=== PATIENT | female | born 1990 | race Two or more races ===

== ENCOUNTER 2019-03-09 18:38 | Emergency (ER) | payer OTHER ==
[~2019-03-09] VITALS: Ht 152.4 cm; Wt 62.6 kg
[2019-03-09 19:55] LABS: BASO % 1 % (0-3); EOS # 0.1 x10^3/uL (0.0-0.7); EOS % 2 % (0-3); HEMATOCRIT 37.1 % (36.0-47.0); HEMOGLOBIN 12.6 g/dL (12.0-15.5); LYMPH # 2.3 x10^3/uL (1.0-4.8); LYMPH % 28 % (24-48); MEAN CORPUSCULAR HEMOGLOBIN 32 pg (25-35); MEAN CORPUSCULAR HGB CONC 34 g/dL (31-37); MEAN CORPUSCULAR VOLUME 94 fL (79-100); MONO # 0.6 x10^3/uL (0.0-1.1); MONO % 8 % (0-9); NEUT # 5.1 x10^3/uL (1.8-7.7); NEUT % 62 % (31-73); PLATELET COUNT 298 x10^3/uL (140-400); RED BLOOD COUNT 3.96 x10^6/uL (3.50-5.40); RED CELL DISTRIBUTION WIDTH 12.8 % (11.5-14.5); WHITE BLOOD COUNT 8.2 x10^3/uL (4.0-11.0)
[2019-03-09 19:58] LABS: BILIRUBIN,URINE NEGATIVE (NEG); CLARITY,URINE CLEAR; COLOR,URINE YELLOW; NITRITE,URINE NEGATIVE (NEG); PH,URINE 5.5; PROTEIN,URINE NEGATIVE (NEG-TRACE)
[2019-03-09 20:02] LABS: BACTERIA,URINE MODERATE /HPF (0-FEW); RBC,URINE OCC /HPF (0-2); SQUAMOUS EPITHELIAL CELL,UR FEW /LPF; WBC,URINE OCC /HPF (0-4)
--- NOTE | 2019-03-09 20:07 | PHYS DOC ---
Past Medical History Past Medical History: No Pertinent History (MAGALIS BANKS APRN) Past Surgical History: No Surgical History (MAGALIS BANKS APRN) Alcohol Use: None Drug Use: None (MAGALIS BANKS APRN) Attending Signature I have participated in the care of this patient and I have reviewed and agree with all pertinent clinical information above including history, exam, and recommendations. (WICHO MCCARTHY MD) Adult General Chief Complaint Chief Complaint: VAGINAL BLEEDING HPI HPI Patient is a 28 year old [female] who presents with lower abdominal cramping, spotting. Patient reports she is approximately 9 weeks , and last follo w-up with her [employer] in 6 weeks. Patient . Reports over the last 1-2 weeks, she is continued has some lower abdominal discomfort. Reports last time she was at her [employer] she is found to have some blood pooling in her uterus, and was told she is high risk. States she has not followed up with her [employer] since that time. States no major vaginal bleeding, no clotting, just some light spotting over the last few days. ] (MAGALIS BANKS APRN) Review of Systems Review of Systems Constitutional: Denies fever or chills [] Respiratory: Denies cough or shortness of breath [] Cardiovascular: No additional information not addressed in HPI [] GI: Denies abdominal pain, nausea, vomiting, bloody stools or diarrhea [] : Denies dysuria or hematuria, Does report lower abdominal cramping L worse than R, with some spotting over the past 2-3 weeks. [] Musculoskeletal: Denies back pain or joint pain [] Integument: Denies rash or skin lesions [] Neurologic: Denies headache, focal weakness or sensory changes [] Endocrine: Denies polyuria or polydipsia [] All other systems were reviewed and found to be within normal limits, except as documented in this note. (MAGALIS BANSK APRN) Allergies Allergies Allergies Coded Allergies Type Severity Reaction Last Updated Verified No Known Drug Allergies 03/09/19 No (WICHO MCCARTHY MD) Physical Exam Physical Exam Constitutional: Well developed, well nourished, no acute distress, non-toxic appearance. [] Eyes: PERRLA, EOMI, conjunctiva normal, no discharge. [] Cardiovascular:Heart rate regular rhythm, no murmur [] Lungs & Thorax: Bilateral breath sounds clear to auscultation [] Abdomen: Bowel sounds normal, soft, no tenderness, no masses, no pulsatile masses. [] Skin: Warm, dry, no erythema, no rash. [] Back: No tenderness, no CVA tenderness. [] Extremities: No tenderness, no cyanosis, no clubbing, ROM intact, no edema. [] Neurologic: Alert and oriented X 3, normal motor function, normal sensory function, no focal deficits noted. [] Psychologic: Affect normal, judgement normal, mood normal. [] (MAGALIS BANKS APRN) Current Patient Data Vital Signs Vital Signs Date Time Temp Pulse Resp B/P (MAP) Pulse Ox O2 Delivery O2 Flow Rate FiO2 03/09/19 20:32 78 17 103/63 (76) 98 Room Air 03/09/19 18:43 98.7 98.7 (WICHO MCCARTHY MD) Lab Values Laboratory Tests Test 03/09/19 19:04 03/09/19 19:06 03/09/19 19:25 Urine Collection Type Unknown Urine Color Yellow Urine Clarity Clear Urine pH 5.5 Urine Specific [place] 1.025 Urine Protein Negative mg/dL (NEG-TRACE) Urine Glucose (UA) Negative mg/dL (NEG) Urine Ketones (Stick) Negative mg/dL (NEG) Urine Blood Large (NEG) Urine Nitrite Negative (NEG) Urine Bilirubin Negative (NEG) Urine Urobilinogen Dipstick 1.0 mg/dL (0.2 mg/dL) Urine Leukocyte Esterase Small (NEG) Urine RBC Occ /HPF (0-2) Urine WBC Occ /HPF (0-4) Urine Squamous Epithelial Cells Few /LPF Urine Bacteria Moderate /HPF (0-FEW) Urine Mucus Mod /LPF POC Urine HCG, Qualitative Hcg positive (Negative) White Blood Count 8.2 x10^3/uL (4.0-11.0) Red Blood Count 3.96 x10^6/uL (3.50-5.40) Hemoglobin 12.6 g/dL (12.0-15.5) Hematocrit 37.1 % (36.0-47.0) Mean Corpuscular Volume 94 fL (79-100) Mean Corpuscular Hemoglobin 32 pg (25-35) Mean Corpuscular Hemoglobin Concent 34 g/dL (31-37) Red Cell Distribution Width 12.8 % (11.5-14.5) Platelet Count 298 x10^3/uL (140-400) Neutrophils (%) (Auto) 62 % (31-73) Lymphocytes (%) (Auto) 28 % (24-48) Monocytes (%) (Auto) 8 % (0-9) Eosinophils (%) (Auto) 2 % (0-3) Basophils (%) (Auto) 1 % (0-3) Neutrophils # (Auto) 5.1 x10^3/uL (1.8-7.7) Lymphocytes # (Auto) 2.3 x10^3/uL (1.0-4.8) Monocytes # (Auto) 0.6 x10^3/uL (0.0-1.1) Eosinophils # (Auto) 0.1 x10^3/uL (0.0-0.7) Basophils # (Auto) 0.0 x10^3/uL (0.0-0.2) Maternal Serum HCG Beta Subunit 99124 mIU/mL (0-5) H Sodium Level 140 mmol/L (136-145) Potassium Level 3.9 mmol/L (3.5-5.1) Chloride Level 105 mmol/L (98-107) Carbon Dioxide Level 26 mmol/L (21-32) Anion Gap 9 (6-14) Blood Urea Nitrogen 11 mg/dL (7-20) Creatinine 0.7 mg/dL (0.6-1.0) Estimated GFR (Cockcroft-Gault) 98.9 Glucose Level 85 mg/dL (70-99) Calcium Level 8.9 mg/dL (8.5-10.1) Laboratory Tests 03/09/19 19:25 Laboratory Tests 03/09/19 19:25 (WICHO MCCARTHY MD) EKG EKG [] (MAGALIS BANKS APRN) Radiology/Procedures Radiology/Procedures FINDINGS: Uterus measures 7.3 x 6.0 x 5.2 cm. Within the endometrium there is a gestational sac with yolk sac and pole. pole measures 17 mm in crown-rump length. No heart rate is identified. Right ovary measures 2.1 x 2.5 x 2.8 cm. Left ovary measures 2.2 x 3.3 x 1.1 cm. IMPRESSION: Intrauterine gestational sac with pole. No heart rate or color Doppler flow identified within the pole. Findings are concerning for failed . Recommend correlation with serial beta hCG measurements. Electronically signed by: Bre Newsome MD (03/09/2019 8:17 PM) [facility] [] (MAGALIS BANKS APRN) Course & Med Decision Making Course & Med Decision Making Pertinent Labs and Imaging studies reviewed. (See chart for details) [Discussed findings with OBGYN, Dr Butler. Advised to see him in office tomorrow at 10 am, remain NPO. Discussed with patient suspicious for demise, patient reports she suspec ysabel it. Does have appointment with OBGYN tomorrow for ultrasound, but will probably go see Dr Butler as we had set up. Patient without further concerns or questions. (MAGALIS BANKS APRN) Dragon Disclaimer Dragon Disclaimer This electronic medical record was generated, in whole or in part, using a voice recognition dictation system. (MAGALIS BANKS APRN) Departure Departure Impression: Primary Impression: Incomplete miscarriage Condition: STABLE Referrals: NO PCP (PCP) DANDY BUTLER MD Patient Instructions: Threatened Miscarriage, [id number] Additional Instructions: As we discussed, follow up with Dr Butler tomorrow, Mar 10, 2019 at 10 am in his office. His office is [address] [place] [address]. Do not eat or drink anything until you are cleared after the appointment tomorrow. The ultrasound findings show there was no heartbeat on your baby today. This is not your fault. Unfortunately this happens sometimes in , but it was nothing you did to cause this. MAGALIS BANKS APRN Mar 09, 2019 20:07 WICHO MCCARTHY MD Mar 09, 2019 23:27
[2019-03-09 20:10] LABS: CALCIUM 8.9 mg/dL (8.5-10.1); CREATININE 0.7 mg/dL (0.6-1.0); GFR 98.9; POTASSIUM 3.9 mmol/L (3.5-5.1)
--- NOTE | 2019-03-09 20:20 | RAD ---
Exam: Ultrasound OB less than 14 weeks Indication: Vaginal bleeding Technique: Real-time grayscale and color Doppler images of the pelvis were obtained by the department senior hadoop developer. Comparisons: None FINDINGS: Uterus measures 7.3 x 6.0 x 5.2 cm. Within the endometrium there is a gestational sac with yolk sac and pole. pole measures 17 mm in crown-rump length. No heart rate is identified. Right ovary measures 2.1 x 2.5 x 2.8 cm. Left ovary measures 2.2 x 3.3 x 1.1 cm. IMPRESSION: Intrauterine gestational sac with pole. No heart rate or color Doppler flow identified within the pole. Findings are concerning for failed . Recommend correlation with serial beta hCG measurements. Electronically signed by: Bre Newsome MD (03/09/2019 8:17 PM) [facility]
[2019-03-09 20:32] VITALS: BP 103/63
== END 2019-03-09 20:58 | disposition home or self-care (01) ==
LOC: ER 18:38
DX: O03.4 Incomplete spontaneous abortion without complication (principal); Z3A.09 9 weeks gestation of pregnancy
CPT/HCPCS: 36415; 76801; 76817; 80048; 81001; 81025; 84702; 85025; 86900; 86901; 87086; 99285-25